=== PATIENT | female | born 1990 | race African-American/Black ===

== ENCOUNTER 2020-08-02 16:10 | Emergency (ER) | payer OTHER ==
[~2020-08-02] VITALS: Ht 172.7 cm; Wt 108.9 kg
--- NOTE | 2020-08-02 16:28 | NUR ---
ED Nurse Note: Pt ambulated to ED accompanied by caregiver d/t behavioral complaint as manifested by "hearing voices, seeing things" as verbalized by the caregiver. Pt is AOx1, consistently flat affect, has good eye-contact, non-verbal as of now. Per caregiver, pt had prev. manifested the same sx and was admitted to [facility] last december, got discharge but apparently manifesting the same sx again. Pt has hx of schizophrenia and bipolar disorder.
[2020-08-02 16:34] VITALS: BP 127/93
--- NOTE | 2020-08-02 16:38 | NUR ---
ED Nurse Note: ERMD at bedside.
[2020-08-02] MEDS ORDERED: Haloperidol 5mg/ml Inj IM ONE (16:45)
[2020-08-02 17:27] LABS: ANION GAP 13 mmol/L (5-15); BLOOD UREA NITROGEN 8 mg/dL (7-18); CALCIUM 8.9 MG/DL (8.5-10.1); CARBON DIOXIDE 23 MMOL/L (21-32); CHLORIDE 108 MMOL/L (98-107); POTASSIUM 3.3 MMOL/L (3.5-5.1); SODIUM 144 MMOL/L (136-145)
[2020-08-02 17:28] LABS: BASOPHILS % (AUTO) 0.6 % (0.0-2.0); EOSINOPHILS % (AUTO) 0.5 % (0.0-3.0); HEMATOCRIT 41.3 % (37.0-47.0); HEMOGLOBIN 14.1 G/DL (12.0-16.0); MEAN CORPUSCULAR VOLUME 91 FL (80-99); MONOCYTES % (AUTO) 5.7 % (1.0-10.0); NEUTROPHILS % (AUTO) 77.2 % (45.0-75.0); PLATELET COUNT 156 K/UL (150-450); RED BLOOD COUNT 4.54 M/UL (4.20-5.40); WHITE BLOOD COUNT 7.9 K/UL (4.8-10.8)
[2020-08-02 17:31] LABS: ALANINE AMINOTRANSFERASE 38 U/L (12-78); ALBUMIN 4.1 G/DL (3.4-5.0); ALBUMIN/GLOBULIN RATIO 1.2 (1.0-2.7); ALKALINE PHOSPHATASE 65 U/L (46-116); ASPARTATE AMINO TRANSFERASE 30 U/L (15-37); BILIRUBIN,TOTAL 0.9 MG/DL (0.2-1.0)
--- NOTE | 2020-08-02 17:46 | NUR ---
ED Nurse Note: urine collected, sent to lab
--- NOTE | 2020-08-02 17:58 | Emergency Room Report ---
History of Present Illness General Chief Complaint: Behavioral Complaint Source: Patient, Caregiver Present Illness HPI Disclaimer: Please note that this report is being documented using it[employer] technology. This can lead to erroneous entry secondary to incorrect interpretation by the dictating instrument. HPI: 30-year-old female history of bipolar schizophrenia presents from home with her caregiver due to an acute psychotic episode. Patient apparently was found outside her house by neighbors with bizarre behavior yelling. With the c aregiver patient seems not her usual self, not eating, and not conversing like she normally does. She was last admitted to a psychiatric facility approximately 6 months ago. No fevers. Patient denies any pain but she is uncooperative on exam, does not answer all questions. Flat affect. Patient does live by herself at nighttime. Currently takes Seroquel and did take her medication today. Allergies: Coded Allergies: IBUPROFEN (Verified Allergy, Unknown, 07/02/16) Uncoded Allergies: MOTRIN (Allergy, Unknown, 07/02/16) COVID-19 Screening Contact w/high risk pt: No Experienced COVID-19 symptoms?: No COVID-19 Testing performed BUILDING MAINTENANCE ENGINEER: No Patient History Reviewed Nursing Documentation: PMH: Agreed; PSxH: Agreed Nursing Documentation-PMH Past Medical History: No History, Except For Review of Systems All Other Systems: negative except mentioned in HPI Physical Exam Vital Signs Date Time Temp Pulse Resp B/P (MAP) Pulse Ox O2 Delivery O2 Flow Rate FiO2 08/02/20 16:23 98.6 112 20 127/93 (104) 96 Room Air Sp02 EP Interpretation: reviewed, normal General Appearance: no apparent distress, other - Flat affect Head: normocephalic, atraumatic Eyes: bilateral eye PERRL, bilateral eye EOMI ENT: hearing grossly normal, moist mucus membranes Neck: full range of motion, supple Respiratory: lungs clear, normal breath sounds, no rhonchi, no respiratory distress, no retraction, no wheezing Cardiovascular #1: normal peripheral pulses, no murmur, tachycardia Gastrointestinal: non tender, soft, non-distended, no guarding Neurologic: alert, no focal defects, other - Oriented to name Psychiatric: no suicidal/homicidal ideation, depressed affect - Flat affect, a ppears to be responding to internal stimuli, other Skin: normal color, warm/dry Medical Decision Making Diagnostic Impression: Primary Impression: Gravely disabled Additional Impressions: History of schizophrenia UTI (urinary tract infection) ER Course MDM: Patient presents from home with caregiver due to being altered. She does live alone. She has a history of bipolar disorder and schizophrenia. Patient apparently had a psychotic episode today at home. According to the caregiver patient is not acting her normal self. To me she did seem gravely disabled as she was almost catatonic with a flat affect. She does not appear to be able to take care of herself. Medical clearance labs were ordered on the patient and showed no significant abnormalities besides a positive urinalysis. Patient started on oral antibiotics.. Patient will be medically cleared for psychiatric evaluation. Patient was given Haldol in the ER for suspected psychosis. PET team was called and evaluated the patient and put patient on a 5150 hold.. Last Vital Signs Date Time Temp Pulse Resp B/P (MAP) Pulse Ox O2 Delivery O2 Flow Rate FiO2 08/02/20 16:34 112 20 Room Air 08/02/20 16:34 98.6 127/93 96 Disposition: PSYCH HOSP/UNIT Condition: Stable Referrals: [facility]ERR[facility] (PCP) Justin Long M.D. Aug 02, 2020 17:58
[2020-08-02 18:03] LABS: APPEARANCE,URINE SLIGHTLY CLOUDY; BILIRUBIN, URINE 1+ (NEGATIVE); GLUCOSE, URINE (UA) NEGATIVE (NEGATIVE); KETONES,URINE 4+ (NEGATIVE); LEUKOCYTE ESTERASE ,URINE 3+ (NEGATIVE); NITRITE,URINE NEGATIVE (NEGATIVE); PH,URINE 5 (4.5-8.0); PROTEIN,URINE 2+ (NEGATIVE); UROBILINOGEN,URINE 4 MG/DL (0.0-1.0)
[2020-08-02 18:07] LABS: COLOR,URINE YELLOW
--- NOTE | 2020-08-02 18:58 | NUR ---
ED Nurse Note: Hand off given to DELANEY Cordoba for continuity of care.
--- NOTE | 2020-08-02 19:01 | NUR ---
ED Nurse Note: Endorsed care of pt. Pt found laying in bed awake and alert, calm and cooperative. Pt asking about her 2 children. No acute distress noted.
--- NOTE | 2020-08-02 19:35 | NUR ---
ED Nurse Note: Pt requesting to speak with family, Joslyn (caregiver) called and is speaking with pt.
--- NOTE | 2020-08-02 19:49 | NUR ---
ED Nurse Note: Spoke with pt, she denies suicide and homocidal ideation. Pt denies currently hearing voices or seeing things. Room checked for safety and is free of harmful objects.
[2020-08-02 20:00] VITALS: BP 124/86
--- NOTE | 2020-08-02 20:32 | NUR ---
ED Nurse Note: PMR Team at bedside evaluating pt.
--- NOTE | 2020-08-02 20:45 | NUR ---
ED Nurse Note: per PMR Team pt will be placed on a hold, electrical discharge machine operator and EDMD notified.
--- NOTE | 2020-08-02 21:44 | NUR ---
ED Nurse Note: pt laying in bed, meal offered but refused. Warm blankets and pillow given for comfort. No acute distress noted. Safety precautions in place.
--- NOTE | 2020-08-03 00:47 | NUR ---
ED Nurse Note: pt laying in bed with eyes closed, no acute distress noted. Safety precautions in place.
[2020-08-03] MEDS ORDERED: DiphenhydrAMINE 50mg/ml Inj IVP ONE (03:15)
--- NOTE | 2020-08-03 03:15 | NUR ---
ED Nurse Note: pt appears restless, has been pacing in and out of the room for the past hour and at times cries, pt cooperative and able to be redirected back to bed. Pt offered water and food. Pt walked to restroom with steady gait. Warm blankets offered.
--- NOTE | 2020-08-03 05:04 | NUR ---
ED Nurse Note: pt is awake, unable to sleep, EDMD aware. Pt is cooperative but restless. Encouraged pt to express feelings using therapeutic communication. Pt went back to bed.
[2020-08-03 06:45] VITALS: BP 118/82
--- NOTE | 2020-08-03 07:13 | NUR ---
ED Nurse Note: Report received from DELANEY Cordoba. pt is seen in bed awake, alert. Sherri garibay distress is noted. Sitter at bedide. will continue to monitor
--- NOTE | 2020-08-03 07:20 | NUR ---
ED Nurse Note: IV site removed,
--- NOTE | 2020-08-03 10:07 | NUR ---
ED Nurse Note: pt seen in bed awake, quiet, no acute distress is noted. VSS as documented. sitter at bedside. will continue to monitor.
[2020-08-03 10:08] VITALS: BP 126/80
[2020-08-03 12:47] VITALS: BP 113/76
--- NOTE | 2020-08-03 12:48 | NUR ---
ED Nurse Note: PT seen in bed, awake, alert, able to make needs known. Sitter is at bedside. no acute distress is noted. V/S stable as documented. Will continue to monitor.
[2020-08-03] MEDS ORDERED: NITROFURANTOIN100 M2 ORAL (14:06)
--- NOTE | 2020-08-03 14:16 | NUR ---
ED Nurse Note: Report given to lion zuniga from [facility]
[2020-08-03 15:00] VITALS: BP 120/88
--- NOTE | 2020-08-03 15:00 | NUR ---
ED Nurse Note: [facility] ARRIVED, PT WAS THEN TRANSPORTED TO [facility] IN STABLE CONDITION. ALL BELONGINGS GIVEN TO AMBULANCE PERSONNELS. REPORT GIVEN TO ANBULANCE PERSONNELS.
== END 2020-08-03 15:00 ==
LOC: EMR 17:00
DX: F79 Unspecified intellectual disabilities (principal); F20.9 Schizophrenia, unspecified; N39.0 Urinary tract infection, site not specified; Z88.6 Allergy status to analgesic agent
CPT/HCPCS: 36415; 80053; 80307; 81003; 81025; 85025; 87086; 96372; 96374; G0480; G0481; J1200; J1630; U0002; Z7502; 99285; J8499